=== PATIENT | female | born 1945 | race Caucasian/White ===

== ENCOUNTER 2021-08-30 16:09 | Emergency (ER) | payer MEDICARE, SELFPAY ==
[2021-08-30] VITALS (7 sets, daily range): BP systolic 108–159; BP diastolic 70–94; PULSE 85–105; RESP 16–39; TEMP 36.4–36.6; O2SAT 22–99
--- NOTE | ~2021-08-30 | XR_ITS ---
EXAMINATION: XR chest 2V DATE: 08/30/2021 17:51 INDICATION: Hypoxia TECHNIQUE: AP and lateral views of the chest are obtained. COMPARISON: None available FINDINGS: There are diffuse reticular interstitial opacities. More focal airspace opacities are seen in the right upper lobe. There is no pneumothorax. There are moderate size right and small left pleur al effusions. The heart size is normal. There is moderate thoracic spondylosis. IMPRESSION: 1. Diffuse reticular interstitial opacities, consistent with pulmonary edema and/or chronic interstit ial lung disease. 2. Moderate-sized right and small left pleural effusions. 3. Atelectasis versus pneumonia of the right upper lobe. Reviewed, dictated and finalized at location F. IMPRESSION: 1. Diffuse reticular interstitial opacities, consistent with pulmonary edema an d/or chronic interstitial lung disease. 2. Moderate-sized right and small left pleural effusions. 3. Atelectasis versus pneumonia of the right upper lobe.
--- NOTE | ~2021-08-30 | US_ITS ---
EXAMINATION: US venous doppler [facility] DATE: 08/30/2021 17:55 INDICATION: Bilateral lower limb swelling TECHNIQUE: Arzate scale images without and with compression and Doppler images of the bilateral lower e xtremity veins were obtained. COMPARISON: None FINDINGS: The right common femoral vein, profunda femoral vein, femoral vein, popliteal vein, peroneal trunk, p osterior tibial veins, and greater saphenous vein are patent. There is occlusion of the left common femoral vein, profunda femoral vein, femoral vein, popliteal ve in, peroneal trunk, posterior tibial veins, and greater saphenous vein. IMPRESSION: 1. Occlusion of the visualized left lower extremity veins. 2. No evidence of deep venous thrombosis on the right. Reviewed, dictated and finalized at location F.
--- NOTE | ~2021-08-30 | US_ITS ---
EXAMINATION: US ARTERIAL DUPLEX [facility]OWER [facility] DATE: 08/30/2021 17:55 INDICATION: Bilateral lower extremity pain and swelling TECHNIQUE: Grayscale ultrasound images and duplex color Doppler ultrasound images of the bilateral lo wer extremity arteries were obtained. COMPARISON: none FINDINGS: No large vessel occlusion is identified. Arterial waveforms are normal. Doppler pressures were not pe rformed due to deep venous thrombosis of the left lower extremity. Peak systolic velocities (cm/s) we re obtained in the following arteries: Right lower extremity: Common femoral: 82.2 Profunda femoral: 50.7 Superficial femoral, proximal: 93.6 Superficial femoral, mid: 92.9 Superficial femoral, distal: 44.3 Popliteal: 45.1 Posterior tibial: 22.2 Dorsalis pedis: 31.8 Left lower extremity: Common femoral: 76.4 Profunda femoral: 75 Superficial femoral, proximal: 124.7 Superficial femoral, mid: 60.6 Superficial femoral, distal: 68.4 Popliteal: 43.5 Posterior tibial: 22.6 Dorsalis pedis: 28.2 IMPRESSION: 1. No arterial occlusion identified. Reviewed, dictated and finalized at location F.
[2021-08-30 16:53] LABS: Alveolar/Arterial O2 Gradient 203.9 mmHg; Base Excess ABG -17.4 mEq/l (+/-2.0); Fractional Inspired Oxygen 44 %; HCO3 ABG 9.5 mEq/l (22.0-26.0); Oxygen Content ABG 25.7 %vol (16.0-22.0); Oxygen Saturation ABG 92.3 % (95.0-100.0); Oxyhemoglobin 90.6 % THb (90.0-100.0); PCO2 ABG 27.4 mmHg (35.0-45.0); PO2 ABG 78.6 mmHg (80.0-100.0); PO2 FiO2 Ratio Arterial Blood 1.79 %; Total Hemoglobin 20.2 g/dL (12.0-18.0)
--- NOTE | 2021-08-30 16:54 | ECG_ITS ---
Measurements Intervals [place] Rate: 95 P: 85 MD: 178 QRS: 106 QRSD: 97 T: 64 QT: 337 QTc: 424 Interpretive Statements SINUS RHYTHM BASELINE ARTIFACT POSSIBLE LEFT ATRIAL ENLARGEMENT [-0.1mV P WAVE IN V1/V2] INCOMPLETE RIGHT BUNDLE BRANCH BLOCK [90+ ms QRS DURATION, TERMINAL R IN V1/V2, 40+ ms S IN I/aVL/V4/V5/V6] POSSIBLE ANTERIOR MYOCARDIAL INFARCTION , OF INDETERMINATE AGE [30 ms Q WAVE IN V3/V4, OR R < 0.2 mV IN V4] ABNORMAL ECG NO PREVIOUS ECG AVAILABLE FOR COMPARISON Electronically Signed On 08-30-2021 17:27:44 CDT by Feliberto Mckay M.D.
[2021-08-30 16:56] LABS: Device NASAL CANNULA; Modified Allen's Test Pass; Site Drawn RIGHT RADIAL; pH ABG 7.157 (7.350-7.450)
[2021-08-30 16:58] LABS: Basophils Absolute Auto 0.1 K/mm3 (0.0-0.1); Basophils Percent Auto 0.6 % (0.2-1.2); Eosinophils Percent Auto 0.1 % (0-4.4); Hematocrit 59.2 % (37.0-47.0); Hemoglobin 19.1 g/dL (12.0-15.0); Immature Granulocyte Percent A 0.6 % (0-0.5); Mean Corpuscular HGB Conc 32.3 g/dl (32-36); Mean Corpuscular Hemoglobin 33.3 pg (26-34); Mean Corpuscular Volume 103.3 fl (80-100); Mean Platelet Volume 10.2 fl (7.4-10.4); Monocytes Absolute Auto 1.2 K/mm3 (0.1-0.6); Monocytes Percent Auto 7.1 % (2.6-8.5); Neutrophils Percent Auto 86.6 % (45.5-73.1); Nucleated Red Blood Cells Absolute Auto 0.1 K/mm3 (0.0-0.012); Nucleated Red Blood Cells Perc 0.6 % (0.0-0.2); Platelet Count Result 172 k/mm3 (150-375); Red Blood Count 5.73 M/mm3 (4.2-5.4); Red Cell Distribution Width 14.5 % (11.5-14.5); White Blood Count 16.1 K/mm3 (4.5-10.0)
--- NOTE | 2021-08-30 17:06 | PC.NURSE ---
called 17:06 to add BNP, C Reactive and ESR
--- NOTE | 2021-08-30 17:08 | PC.NURSE ---
Pt to U/S via stretcher at this time. Pt is on 6 L NC O2.
[2021-08-30 17:16] LABS: INR 1.9; Partial Thromboplastin Time 30.3 SECONDS (22.3-36.8); Prothrombin Time 20.8 Seconds (11.1-14.7)
--- NOTE | 2021-08-30 17:19 | PC.NURSE ---
1630 Pt arrived to room 2, SPO2 reading at 64, Non-Rebreather applied at 15 liters, increase in spo2 to 99%. Pt weaned to 6L NC at 1645, Respiratory at bedside to drawn HCG at 1650. Clubbing noted on fingernails and nail beds prior to 02 application, patient not on home o2 and denies medical history. 1635 Dr. Frank/Dr. Sean Nair at bedside, pedal pulses Dopplered.Lower extremities covered in petechiae rash and toes discolored dark/blue, left leg also swollen to thigh. Ruptured blistered on left ankle, serous drainage. Pt states she feels sensation to touch but it feels itchy.
[2021-08-30 17:32] LABS: CRP 4.2 mg/dL (<1.0)
[2021-08-30 17:51] LABS: Erythrocyte Sedimentation Rate 1 mm/hr (0-20)
[2021-08-30 18:16] LABS: Alanine Aminotransferase 365 U/L (6-35); Albumin Level 3.8 g/dL (3.5-5.1); Alkaline Phosphatase 144 U/L (38-126); Anion Gap 18 mmol/L (8-16); Aspartate Amino Transferase 503 U/L (14-36); Bilirubin,Total 3.3 mg/dL (0.2-1.3); Blood Urea Nitrogen 25 mg/dL (7-17); Carbon Dioxide 12 mmol/L (22-30); Chloride 101 mmol/L (98-107); Estimated CRCL calculation 27 ml/min; Estimated Glomerular Filt Rate 19; Glucose 120 mg/dL (65-110); Potassium 5.6 mmol/L (3.4-5.0); Sodium 131 mmol/L (137-145)
[2021-08-30 18:17] LABS: Creatine Kinase 156 U/L (30-135)
[2021-08-30 18:27] LABS: NT Pro B Type Natriuretic Pept > 35000 pg/mL (5-100)
[2021-08-30 18:41] LABS: D Dimer 3.86 ug/mL (<0.48)
[2021-08-30] MEDS: HEPARIN SODIUM 5,000 UNITS/ML VIAL 5000 UNITS IV PUSH (18:42)
[2021-08-30] MEDS: SODIUM BICARBONATE 8.4% 50 MEQ/50 ML SYRINGE IV PUSH (18:42)
[2021-08-30] MEDS: HEPARIN SOD/D5W 100 UNITS/ML 25,000 UNITS/250 ML BAG 11 UNITS IV CONT (18:43)
[2021-08-30 18:44] LABS: Fibrinogen 110 mg/dl (215-510)
--- NOTE | 2021-08-30 19:11 | ED.GENADULT ---
HPI - General Adult General Chief complaint: Extremity Problem,Nontraumatic Stated complaint: LOWER EXT PAIN/SWELLING X 2WK Time Seen by Provider: 08/30/21 16:24 Source: patient History of Present Illness HPI narrative: Patient presents with bilateral lower extremity itching and swelling. Reports has had symptoms for approximately 2 weeks and her symptoms have not been getting better so she initially went to an urgent care. Urgent care referred to the ER for further evaluation they are concerned for a cellulitis. Patient reports she noticed some discoloration and swelling in her bilateral lower extremities however the swelling and discoloration have progressed and her left is worse than her right. She also report some shortness of breath over this time. Denies any fevers chills nausea vomiting or diarrhea has any cough congestion or chest pain she denies any abdominal pain. She denies any past medical history reports she does not see physicians on a regular basis she denies any recent hospitalizations or surgeries she denies any prior history of DVT or PEs. Related Data Home Medications Medication Instructions Recorded Confirmed No Home Medications 08/30/21 08/30/21 Allergies Allergy/AdvReac Type Severity Reaction Status Date / Time No Known Allergies Allergy Verified 08/30/21 16:41 Review of Systems Review of Systems: CONSTITUTIONAL: Denies fever, chills, or sweats. EYES: Denies visual changes, redness, or discharge. ENT: Denies rhinorrhea, congestion, sore throat, or otalgia. CARDIOVASCULAR: Denies chest pain, palpitations, or edema. RESPIRATORY: Reports shortness of breath GASTROINTESTINAL: Denies abdominal pain, nausea, vomiting, or diarrhea. GENITOURINARY: Denies dysuria or hematuria. SKIN: Denies rash or itching. MUSCULOSKELETAL: Denies back pain, joint pain, or myalgia. NEUROLOGIC: Denies headache, numbness, dizziness, or weakness. PSYCHIATRIC: Denies anxiety or depression. All systems reviewed & are unremarkable except as noted in HPI and below Exam Narrative: GENERAL: Ill-appearing with increased respiratory effort HEAD: Normocephalic, atraumatic. EYES: PERRLA and EOMI. ENT: Nares clear, no rhinorrhea or epistaxis. Mucous membranes moist. NECK: Supple. No masses. No JVD CHEST: Clear to auscultation. Increased work of breathing HEART: Regular rate and rhythm. No murmur heard. Normal peripheral pulses. ABDOMEN: Soft, nontender, nondistended EXTREMITIES: Nonblanching purpura in the bilateral feet the left leg extends up past the knee there is mild old and cyanotic appearance of the left lower extremity unable to palpate pulses bilaterally there is 2+ pitting edema up to the thigh and the left lower extremity. Cyanotic appearance of the bilateral hands SKIN: Warm, dry, no rash. NEURO: No focal deficits. Alert and oriented x3. PSYCH: Normal mood and affect. Course Reevaluation(s) Reevaluation #1: Patient overall is looking improved from her initial exam and would need to have increased respiratory effort we have contacted [facility] transfer center attempted transfer to [facility] however patient will likely need a tertiary care facility will attempt to contact [facility] discussed case with vascular surgery. Patient has been up-to-date regarding her work-up thus far and transfer plans. Date: 08/30/21 Time: 19:12 Consultations Consultation #1: Case cussed with vascular surgery over at [facility] recommended ED to ED transfer. Case cussed with emergency room at [facility] who accepted for transfer. Patient excepted by Dr. Bolden Date: 08/30/21 Time: 19:43 Vital Signs Vital signs: Vital Signs Temperature 36.4 C 08/30/21 16:16 Pulse Rate 105 H 08/30/21 16:16 Respiratory Rate 26 H 08/30/21 16:16 Blood Pressure 132/75 08/30/21 16:16 Pulse Oximetry 91 08/30/21 16:16 Oxygen Delivery Room Air 08/30/21 16:16 Temperature 36.6 C
[2021-08-30 19:37] LABS: Basophils Absolute Auto 0.1 K/mm3 (0.0-0.1); Basophils Percent Auto 0.3 % (0.2-1.2); Hematocrit 54.5 % (37.0-47.0); Hemoglobin 18.8 g/dL (12.0-15.0); Immature Granulocyte Absolute 0.06 K/mm3 (0.00-0.031); Immature Granulocyte Percent A 0.4 % (0-0.5); Lymphocytes Absolute Auto 0.49 K/mm3 (0.9-3.2); Lymphocytes Percent Auto 3.1 % (18.3-44.2); Mean Corpuscular HGB Conc 34.5 g/dl (32-36); Mean Corpuscular Hemoglobin 34.3 pg (26-34); Mean Corpuscular Volume 99.5 fl (80-100); Mean Platelet Volume 10.1 fl (7.4-10.4); Monocytes Absolute Auto 0.8 K/mm3 (0.1-0.6); Monocytes Percent Auto 4.7 % (2.6-8.5); Neutrophils Absolute Auto 14.7 K/mm3 (1.3-6.7); Neutrophils Percent Auto 91.5 % (45.5-73.1); Nucleated Red Blood Cells Perc 0.2 % (0.0-0.2); Platelet Count Result 143 k/mm3 (150-375); Red Blood Count 5.48 M/mm3 (4.2-5.4); Red Cell Distribution Width 13.6 % (11.5-14.5)
[2021-08-30 19:48] LABS: INR 2.2
[2021-08-30 19:56] LABS: Reflex Lactic Acid Yes or No Add Lactic
--- NOTE | 2021-08-30 19:58 | PC.NURSE ---
called [facility] to requesta transport. ETA 2100 @1943 called [facility] to request transport. declined @1948 called [facility] to request transport. declined
[2021-08-30 20:09] LABS: Troponin I 0.217 ng/mL (0.000-0.034)
[2021-08-30 20:29] LABS: Partial Thromboplastin Time > 200.0 SECONDS (22.3-36.8)
== END 2021-08-30 20:40 | disposition short-term general hospital (02) ==
PROVIDERS: Emergency Provider Emergency Medicine; PCP Internal Medicine
DX: I82.4Z2 Acute embolism and thrombosis of unspecified deep veins of left distal lower extremity (principal); R09.02 Hypoxemia; D72.829 Elevated white blood cell count, unspecified; E87.2 Acidosis; N17.9 Acute kidney failure, unspecified; R79.89 Other specified abnormal findings of blood chemistry; J81.1 Chronic pulmonary edema; R06.02 Shortness of breath
CPT/HCPCS: 36415; 36600; 71046; 80053; 82550; 82805; 83605; 83880; 84484; 85025; 85380; 85384; 85610; 85652; 85730; 86140; 93005; 93925; 93970; 96365; 96366; 96375; 99284; 99285; J1644